=== PATIENT | male | born 1995 | race Caucasian/White ===

== ENCOUNTER 2017-11-19 07:39 | Emergency (ER) | payer SELFPAY ==
[2017-11-19 08:02] VITALS: BP 124/83
--- NOTE | 2017-11-19 08:16 | UC ---
General HPI - HPI Summary HPI Summary: Patient presents to urgent care with complaints of discomfort behind his left ear lobe. Patient states he first noticed approximately 3 days ago. Patient states his become more red and sore. No drainage. No analgesic taken. No treatment applied. Patient states he had similar pains in the right side. Patient states it look like pimples that he popped. Patient states this one has not "popped" patient denies fevers or chills. Patient denies nausea or vomiting. He denies nasal congestion or sore throat. Patient states several family members have had Hodgkin's lymphoma including his father. Patient was concerned that this is related. Patient denies weight loss. No night sweats. No shortness of breath. No chest pain. Patient's medications reviewed this visit - History of Current Complaint Chief Complaint: UCGeneralIllness Stated Complaint: SKIN COMPLAINT/L EAR Time Seen by Provider: 11/19/17 08:09 Hx Obtained From: Patient Onset/Duration: Gradual Onset Timing: Constant Onset Severity: Mild Current Severity: Mild Pain Intensity: 3 - Allergy/Home Medications Allergies/Adverse Reactions: Allergies Allergy/AdvReac Type Severity Reaction Status Date / Time No Known Allergies Allergy Verified 11/19/17 08:03 PMH/Surg Hx/FS Hx/Imm Hx Previously Healthy: Yes - Surgical History Surgical History: Yes Surgery Procedure, Year, and Place: appy, tonsillectomy - Family History Known Family History: Positive: Other - Father with Hodgkin's lymphoma age 24 - Social History Occupation: Employed Part-time - Occasional construction Lives: With Family Alcohol Use: Occasionally Substance Use Type: Marijuana Substance Use Comment - Amount & Last Used: 2-3 times weekly- last used tuesday. vicodin today from friend Smoking Status (MU): Light Every Day Tobacco Smoker Type: Cigarettes Amount Used/How Often: 5-6 cigs daily Length of Time of Smoking/Using Tobacco: 5 YRS. Have You Smoked in the Last Year: Yes Review of Systems Constitutional: Negative Skin: Negative All Other Systems Reviewed And Are Negative: Yes Physical Exam - Summary Physical Exam Summary: Vital Signs Reviewed: Yes A+Ox3, no distress Eyes: Conjunctiva Clear ENT: Hearing grossly normal TM x 2 clear mmmoist no exudate, no erythema uvula midline neck: supple no lymphadenopathy Respiratory: Positive: No respiratory distress, No accessory muscle use CTA throughout no w/r Cardiovascular: skin color reflect adequate perfusion, rrr nl s1, s2 no m/r abd soft + BS no guarding, no rebound NT/ND Musculoskeletal Exam: BAILEY x 4 without difficulty Neurological: Positive: Alert, ambulatory without difficulty Psychological: Positive: Normal Response To Family Skin: posterior to left ear lobe on scalp pt with area of erythema warmth mild tender appearance of inflammed follicle. No fluctuance mild induration no drainage No extension to lobe no mastoid pain No cervical LA No axillary LA Triage Information Reviewed: Yes Vital Signs: Initial Vital Signs Temp 98.0 F 11/19/17 07:57 Pulse 91 11/19/17 07:57 Resp 12 11/19/17 07:57 BP 124/83 11/19/17 07:57 Pulse Ox 97 11/19/17 07:57 Vital Signs Reviewed: Yes Course/Dx - Course Course Of Treatment: Patient presents with 3 days progressive redness inflamed area behind his left ear lobe. On exam consistent with follicularis. Patient' s vital signs are stable. Patient states he's had similar ones that he has "popped". This on has not yet drained. No fluctuant. No concern for significant cellulitis. No mastoid pain. I discussed with patient Hodgkin's disease. Patient without noted lymphadenopathy in exam and his axillas, posterior auricular, or submandibular region. Patient without systemic symptoms. Patient offered CBC. After discussion, patient declines blood draw at this time. Patient was scheduled follow-up with primary care provider discussed with patient return precautions. Start Keflex. Motrin Tylenol. Warm soaks. Patient comfortable in agreement with plan. - Differential Dx - Multi-Symptom Provider Diagnoses: folliculitis Discharge - Sign-Out/Discharge Documenting (check all that apply): Discharge/Admit/Transfer - Discharge Plan Condition: Stable Disposition: HOME Prescriptions: Cephalexin CAP* [Keflex CAP*] 500 mg PO TID #21 cap Patient Education Materials: Folliculitis (ED) Referrals: GIOVANNY Capellan [Primary Care Provider] - Additional Instructions: - Stay well hydrated. Drink plenty of non-alcoholic, non-caffinated beverages - Apply warm soaks to inflammed area 2-3 times a day - Take antibiotics as prescribed until gone - If you develop increased pain, swelling, drainage, fever, reddness it is recommended you go to the emergency department Schedule a follow-up appointment with your doctor this week - Billing Disposition and Condition Condition: STABLE Disposition: Home
== END 2017-11-19 08:35 | disposition home or self-care (01) ==
LOC: UCCORT 07:39
DX: L73.9 Follicular disorder, unspecified (principal); F17.210 Nicotine dependence, cigarettes, uncomplicated
CPT/HCPCS: 99212; G0463